=== PATIENT | male | born 1965 | race Caucasian/White ===

== ENCOUNTER → 2019-05-31 | Outpatient (CLI) | payer OTHER ==
--- NOTE | 2019-05-31 12:29 | RAD ---
EXAM DESCRIPTION: Chest,2 Views CLINICAL HISTORY: CARDIAC ARRHYTHMIA COMPARISON: None TECHNIQUE: PA/lateral FINDINGS: There is no acute appearing cardiac or pulmonary abnormality. Heart size is normal with normal pulmonary vascularity. No pleural effusion or pneumothorax. Lungs are clear with no consolidating infiltrate. Lateral view shows intact sternum and T-spine. IMPRESSION: No acute process is identified in the chest. Electronically signed by: Too Amin MD 05/31/2019 12:27 PM CDT
== END ==
LOC: RESP 10:45
PROVIDERS: ATTEND Nurse Practitioner Family
DX: I49.9 Cardiac arrhythmia, unspecified (principal)

== ENCOUNTER → 2019-08-20 | Outpatient (CLI) | payer OTHER | LOC: NM 09:01 | PROVIDERS: ATTEND Nuclear Medicine Nuclear Cardiology | DX: R07.2 Precordial pain (principal) ==